=== PATIENT | male | born 1985 | race Caucasian/White ===

== ENCOUNTER 2024-04-27 13:03 | Observation (INO) | payer BC ==
[2024-04-27 13:36] VITALS: BMI 31.9
[2024-04-27] MEDS ORDERED: Ipratropium/Albuterol 3 ML NEB NEB PRN (13:39)
[2024-04-27] MEDS ORDERED: Ondansetron PF 4 MG/2 ML Vial IVP PRN (13:39)
[2024-04-27] MEDS ORDERED: traMADol HCl 50 MG TAB PO PRN (13:41)
[2024-04-27 14:13] LABS: #Basophils 0.04 10x3/uL (0.0-0.2); #Eosinophils Less than 0.03 10x3/uL (0.0-0.7); %Basophils 0.5 % (0.0-1.0); %Eosinophils 0.3 % (0.0-10.0); %Monocytes 9.3 % (0.0-10.0); %Neutrophils 71.4 % (42.0-75.0); Hematocrit 42.4 % (42.0-52.0); Hemoglobin 14.5 g/dL (14.0-18.0); Mean Corpuscular HGB CONC 34.2 g/dL (32.0-36.0); Mean Corpuscular Hemoglobin 31.7 pg (27.0-31.0); Mean Corpuscular Volume 92.8 fL (78.0-98.0); Mean Platelet Volume 8.7 fL (7.4-10.4); Platelet Count 186 10x3/uL (130-400); RBC Distribution Width 11.4 % (11.5-14.5); Red Blood Cell (RBC) Count 4.57 mill/uL (4.70-6.10)
[2024-04-27 14:27] LABS: PTT 38.3 sec (22.9-36.1); Prothrombin Time 13.4 sec (12.0-14.7)
[2024-04-27] MEDS: Sodium Chloride 0.9% 1,000 ML IV SCH (14:28)
[2024-04-27] MEDS: Acetaminophen 325 MG TAB PO SCH (14:28)
[2024-04-27] MEDS: Morphine 2 MG/ML VIAL SLOW IVP PRN (14:28)
[2024-04-27 14:34] LABS: ALT (SGPT) 46 U/L (8-55); AST (SGOT) 29 U/L (5-34); Albumin 3.7 g/dL (3.5-5.0); Alkaline Phosphatase 77 U/L (40-110); Anion Gap 14 mmol/L (10-20); BUN (Urea Nitrogen) 8 mg/dL (8.9-20.6); Bilirubin, Total 0.7 mg/dL (0.2-1.2); Calc. Creatinine Clearance 162 mL/min (70-130); Calcium 9.3 mg/dL (7.8-10.44); Carbon Dioxide 25 mmol/L (22-29); Chloride 104 mmol/L (98-107); Estimated GFR 114; Globulin 3.6 g/dL (2.4-3.5); Glucose 100 mg/dL (70-105); Potassium 3.9 mmol/L (3.5-5.1); Protein, Total 7.3 g/dL (6.0-8.3); Sodium 139 mmol/L (136-145)
[2024-04-27] MEDS ORDERED: Piperacillin/Tazobactam 3.375 GM in Sodium Chloride 0.9% 100 ML IVPB SCH (15:00)
[2024-04-27] MEDS: traMADol HCl 50 MG TAB PO SCH (16:52)
[2024-04-27] MEDS: Piperacillin/Tazobactam 3.375 GM in Sodium Chloride 0.9% 100 ML IVPB SCH (16:52)
[2024-04-27] MEDS ORDERED: PROPOFOL 20 ML ONE ×2 (17:28→18:10)
[2024-04-27] MEDS ORDERED: Lidocaine 1% PF 5 ML VIAL ONE (17:28)
[2024-04-27] MEDS ORDERED: fentaNYL 50 mcg/mL 1 mL Vial ONE ×4 (17:55→18:56)
[2024-04-27] MEDS ORDERED: Ondansetron PF 4 MG/2 ML Vial ONE (17:56)
[2024-04-27] MEDS ORDERED: Dexamethasone 4 mg/ml Vial ONE (17:56)
[2024-04-27] MEDS ORDERED: Morphine 4 MG/ML VIAL ONE (19:10)
[2024-04-27] MEDS: Famotidine/PF 20 mg/2ml Vial SLOW IVP SCH (21:19)
[2024-04-28 05:28] LABS: #Basophils Less than 0.03 10x3/uL (0.0-0.2); #Eosinophils Less than 0.03 10x3/uL (0.0-0.7); %Basophils 0.1 % (0.0-1.0); %Lymphocytes 12.8 % (21.0-51.0); %Monocytes 5.9 % (0.0-10.0); %Neutrophils 80.7 % (42.0-75.0); Hematocrit 41.3 % (42.0-52.0); Mean Corpuscular HGB CONC 33.9 g/dL (32.0-36.0); Mean Corpuscular Volume 94.5 fL (78.0-98.0); Mean Platelet Volume 9.2 fL (7.4-10.4); Platelet Count 196 10x3/uL (130-400); RBC Distribution Width 11.2 % (11.5-14.5); Red Blood Cell (RBC) Count 4.37 mill/uL (4.70-6.10)
[2024-04-28 05:40] LABS: Anion Gap 13 mmol/L (10-20); BUN (Urea Nitrogen) 10 mg/dL (8.9-20.6); Calc. Creatinine Clearance 166 mL/min (70-130); Calcium 8.9 mg/dL (7.8-10.44); Carbon Dioxide 24 mmol/L (22-29); Chloride 105 mmol/L (98-107); Estimated GFR 114; Glucose 137 mg/dL (70-105); Potassium 4.3 mmol/L (3.5-5.1); Sodium 138 mmol/L (136-145)
[2024-04-28] MEDS: FLU (Fluarix Triv) TS24-25(6MOS UP)/PF 45 MCG/0.5 ML Syringe IM ONE (08:18)
[2024-04-28 12:09] VITALS: BP 107/66; TEMP 97.8
== END 2024-04-28 14:30 | disposition home or self-care (01) ==
LOC: SURG B 13:03 → INTOOBSV 13:03
PROVIDERS: ADMIT Surgery; ATTEND Surgery
PROC: 0D9QXZZ Drainage of Anus, External Approach (ICD-10-PCS; principal; 2024-04-28)
DX: K61.0 Anal abscess (principal)
CPT/HCPCS: 36415; 80048; 80053; 85025; 85610; 85730; 96374; 97139; G0378; J1100; J2272; J2405; J2543; J2704; J3010; J3490; J7030